=== PATIENT | female | born 1950 | race Two or more races ===

== ENCOUNTER 2020-03-01 13:12 | Inpatient (IN) | payer OTHER ==
[~2020-03-01] VITALS: Ht 160 cm; Wt 62.6 kg
[2020-03-01] MEDS ORDERED: ATORVASTATIN CA20 MG PO (13:22)
[2020-03-01] MEDS ORDERED: DAFLONEX-XL 11300 MG PO (13:24)
--- NOTE | 2020-03-01 13:24 | NUR ---
SE RECIBE PTE FEMENINA, MAYOR DE EDAD, ALERTA Y ORIENTADA X 3. PTE REFIERE [place] ANAL EL CUAL SE LO NOTIFICO A URIBE MEDICO DR. VEE QUIEN LE INDICA QUE VENGA POR FLAKITO DE EMERGENCIAS. PTE CON RESULTADOS DE HGB EN 6.7 DEL RONY DE HOY. SE MIDEN SV Y SE UBICA PTE EN AMMY PARA EVALUACION MEDICA.
--- NOTE | 2020-03-01 14:45 | NUR ---
PTE FEMENINA ALERTA Y ORIENTADA EN LAS ALEXEY ESFERAS EN COMPANIA DE FAMILIAR, EVALUADA POR . SE ORIENTA PTE SOBRE ORDENES DE TRATAMIENTO REFIERE COMPRENDER. SE COLECTAN MUESTRAS DE LABORATORIO Y CANALIZA VENA, BAJO MEDIDAS ASEPTICAS. SE ADMINISTRAN LIQUIDOS INTRAVENOSOS, PAZ ORDEN MEDICA. SE ENTREGA ENVASE PARA COLECCION DE U/A Y SE ORIENTA SOBRE COLECCION DE LA MISMA. SE COLECTAN TUBOS PILOTOS PARA 2 UNDADES DE PRBC'S EN HOLD, PAZ ORDEN MEDICA. SE ENTREGAN TUBOS PILOTOS A EN [place].
--- NOTE | 2020-03-01 15:24 | NUR ---
PT ALERTA Y ORIENTADA X3 SE RECIBE EN AMMY CON BARANDAS ELEVADAS Y FRENOS COLOCADOS. HEPARIN LOCK E IVLFUIDS PATENTES. PENDIENTE TRANSFUNDIR 2 UNIDADES PRBCS. SE LLAMA A [place] Y EL SR HODGES REFIERE ACTIVARA LAS UNIDADES Y LLAMARA CUANDO ESTEN DISPONIBLES. PT [place]. SE MANTIENE BAJO OBSERVACION POR CAMBIOS EN BEBA.
[2020-03-03] MEDS ORDERED: VITAMIN B-650 MG PO (12:25)
[2020-03-03] MEDS ORDERED: HYDROCORTISO453.6 G1 RECTAL (12:25)
[2020-03-03] MEDS ORDERED: ABANEU-SL TABL1 EACH SL (12:25)
[2020-03-03] MEDS ORDERED: ATORVASTATIN CA20 MG PO (12:25)
== END 2020-03-03 14:58 | disposition home or self-care (01) | DRG 812 ==
LOC: ER 13:12 → SURH 17:36
PROVIDERS: ADMIT Internal Medicine Geriatric Medicine; ATTEND Internal Medicine Geriatric Medicine
PROC: 30233N1 Transfusion of Nonautologous Red Blood Cells into Peripheral Vein, Percutaneous Approach (ICD-10-PCS; principal; 2020-03-01)
DX: D50.0 Iron deficiency anemia secondary to blood loss (chronic) (principal); K62.5 Hemorrhage of anus and rectum; Z20.828 Contact with and (suspected) exposure to other viral communicable diseases